=== PATIENT | female | born 1935 | race African-American/Black ===

== ENCOUNTER 2020-06-05 13:34 | Emergency (ER) | payer MEDICARE, BC ==
[~2020-06-05] VITALS: Ht 154.9 cm; Wt 63.0 kg
[2020-06-05] MEDS ORDERED: IBUPROFEN 600MG TABLET PO ONE (14:30)
[2020-06-05] MEDS ORDERED: PROPOFOL 200MG/20ML VIAL IV ONE (15:15)
[2020-06-05] MEDS ORDERED: FENTANYL CITRATE/PF 50MCG/ML 2ML VIAL IV ONE (15:15)
[2020-06-05] MEDS ORDERED: KETAMINE HCL 50 MG/ML 10ML IV ONE (15:15)
[2020-06-05] MEDS ORDERED: SODIUM CHLORIDE 0.9% 1,000 ML IV ONE (15:15)
[2020-06-05] MEDS ORDERED: ONDANSETRON HCL 4MG/2ML INJ IV ONE (16:45)
[2020-06-05] MEDS ORDERED: ONDANSETRON 4MG ODT PO ONE (17:30)
[2020-06-05 17:51] VITALS: BP 160/64
== END 2020-06-05 18:13 | disposition home or self-care (01) ==
LOC: ER 14:16
DX: S52.591A Other fractures of lower end of right radius, initial encounter for closed fracture (principal); S52.611A Displaced fracture of right ulna styloid process, initial encounter for closed fracture; W01.0XXA Fall on same level from slipping, tripping and stumbling without subsequent striking against object, initial encounter; Y93.89 Activity, other specified; Y92.89 Other specified places as the place of occurrence of the external cause; I10 Essential (primary) hypertension
CPT/HCPCS: 25605; 73100; 73110; 96361; 96374; 96375; 99152; 99285; J2405; J2704; J3010; J3490; J7030; Q0162

== ENCOUNTER 2022-02-11 04:26 | Inpatient (IN) | payer BC, MEDICARE ==
[~2022-02-11] VITALS: Ht 157.5 cm; Wt 70.8 kg
[2022-02-11] MEDS ORDERED: KETOROLAC 30MG/ML VIAL IV STA (05:33)
[2022-02-11] MEDS ORDERED: SODIUM CHLORIDE 0.9% 1,000 ML IV ONE (05:45)
[2022-02-11 05:55] LABS: HEMATOCRIT. 34.5 % (36.0-48.0); HEMOGLOBIN. 11.2 g/dL (12.0-16.0); MEAN CORPUSCULAR HEMOGLOBIN 30.2 pg (28.0-32.0); MEAN CORPUSCULAR VOLUME 92.9 fL (81.0-99.0); MEAN PLATELET VOLUME 9.1 fl (7.4-10.4); PLATELET 178 x1000/uL (130-400); RED BLOOD CELL COUNT 3.72 mill/uL (4.2-5.4); RED CELL DISTRIBUTION WIDTH 14.3 % (11.6-14.6)
[2022-02-11 06:03] LABS: CHLORIDE 109 mEq/L (98-107)
[2022-02-11] MEDS ORDERED: KETOROLAC 30MG/ML VIAL IV NR (06:30)
[2022-02-11 07:08] LABS: PLATELET ESTIMATE NORMAL
[2022-02-11 09:41] LABS: CLARITY URINE CLEAR (CLEAR); COLOR URINE YELLOW (YELLOW); KETONES URINE NEGATIVE (NEGATIVE); LEUKOCYTE ESTERASE URINE NEGATIVE (NEGATIVE); NITRITE URINE NEGATIVE (NEGATIVE); OCCULT BLOOD URINE 1+ (NEGATIVE); PH URINE 6.5 (4.5-8.0); PROTEIN URINE 3+ (NEGATIVE); SPECIFIC GRAVITY URINE 1.017 (1.005-1.030)
[2022-02-11] MEDS ORDERED: IPRATROPIUM/ALBUTEROL 0.5-3(2.5)MG/3ML NEB HHN PRN (13:15)
[2022-02-11] MEDS ORDERED: DIPHENHYDRAMINE 50MG/ML VIAL IV PRN (13:15)
[2022-02-11] MEDS ORDERED: CEFTRIAXONE 1 G PREMIX 50 ML IV ONE (13:30)
[2022-02-11 17:30] VITALS: BP 153/65
[2022-02-11] MEDS ORDERED: ATEN100T PO (18:27)
[2022-02-11] MEDS ORDERED: LIDO1ADH48 TP (18:27)
[2022-02-11] MEDS ORDERED: LOSA50TA41 PO (18:27)
[2022-02-11] MEDS ORDERED: ASPI-1406 PO (18:27)
[2022-02-11] MEDS ORDERED: AMLO5TAB88 PO (18:27)
[2022-02-11 20:00] VITALS: BP 159/78
[2022-02-12] VITALS (7 sets, daily range): BP systolic 140–153; BP diastolic 60–73
[2022-02-12] MEDS: ACETAMINOPHEN 325MG TABLET PO PRN ×3 (04:09→21:52)
[2022-02-12 08:03] LABS: BASOPHILS % 0.3 % (0.0-2.0); HEMATOCRIT. 33.6 % (36.0-48.0); LYMPHOCYTES % 11.1 % (20.0-50.0); MEAN CORPUSCULAR HEMOGLOBIN 30.5 pg (28.0-32.0); MEAN CORPUSCULAR VOLUME 93.2 fL (81.0-99.0); MEAN PLATELET VOLUME 9.6 fl (7.4-10.4); MONOCYTES % 12.6 % (2.0-8.0); PLATELET 157 x1000/uL (130-400); RED BLOOD CELL COUNT 3.61 mill/uL (4.2-5.4); RED CELL DISTRIBUTION WIDTH 14.2 % (11.6-14.6)
[2022-02-12 08:27] LABS: CHLORIDE 108 mEq/L (98-107)
[2022-02-12] MEDS: ASPIRIN 81MG EC TABLET PO SCH (09:14)
[2022-02-12] MEDS: AMLODIPINE 5MG TABLET PO SCH (09:15)
[2022-02-12] MEDS: ATENOLOL 50 MG TABLET PO SCH (09:16)
[2022-02-12] MEDS: LOSARTAN POTASSIUM 50 MG TABLET PO SCH (09:16)
[2022-02-12] MEDS ORDERED: CEFTRIAXONE 1,000 MG in DEXTROSE 5% WATER 50 ML IV SCH (15:00)
[2022-02-12] MEDS: CEFTRIAXONE 1,000 MG in DEXTROSE 5% WATER 50 ML IV SCH (16:16)
[2022-02-13] VITALS: BP 143/64
[2022-02-13 04:00] VITALS: BP 157/66
[2022-02-13 06:41] LABS: BASOPHILS % 0.3 % (0.0-2.0); EOSINOPHILS % 0.3 % (0.0-5.0); HEMATOCRIT. 34.4 % (36.0-48.0); HEMOGLOBIN. 11.4 g/dL (12.0-16.0); LYMPHOCYTES % 11.5 % (20.0-50.0); MEAN CORPUSCULAR HEMOGLOBIN 30.4 pg (28.0-32.0); MEAN CORPUSCULAR VOLUME 92.1 fL (81.0-99.0); MEAN PLATELET VOLUME 9.3 fl (7.4-10.4); MONOCYTES % 11.9 % (2.0-8.0); PLATELET 177 x1000/uL (130-400); RED BLOOD CELL COUNT 3.74 mill/uL (4.2-5.4); RED CELL DISTRIBUTION WIDTH 14.3 % (11.6-14.6)
[2022-02-13 07:18] LABS: CHLORIDE 105 mEq/L (98-107)
[2022-02-13 08:26] VITALS: BP 163/68
[2022-02-13] MEDS: LOSARTAN POTASSIUM 50 MG TABLET PO SCH (08:53)
[2022-02-13] MEDS: ASPIRIN 81MG EC TABLET PO SCH (08:53)
[2022-02-13] MEDS: ATENOLOL 50 MG TABLET PO SCH (08:54)
[2022-02-13] MEDS: AMLODIPINE 5MG TABLET PO SCH (08:55)
[2022-02-13] MEDS: ACETAMINOPHEN 325MG TABLET PO PRN ×2 (09:00→20:12)
[2022-02-13 12:18] VITALS: BP 135/62
[2022-02-13 16:00] VITALS: BP 134/59
[2022-02-13] MEDS: CEFTRIAXONE 1,000 MG in DEXTROSE 5% WATER 50 ML IV SCH (16:57)
[2022-02-13] MEDS: POLYETHYLENE GLYCOL 3350 (17GM) 1 DOSE PACK PO SCH (16:57)
[2022-02-13 20:00] VITALS: BP 159/66
[2022-02-14] VITALS: BP 152/69
[2022-02-14 04:00] VITALS: BP 152/56
[2022-02-14 06:32] LABS: BASOPHILS % 0.3 % (0.0-2.0); EOSINOPHILS % 0.4 % (0.0-5.0); HEMATOCRIT. 33.4 % (36.0-48.0); HEMOGLOBIN. 11.2 g/dL (12.0-16.0); LYMPHOCYTES % 14.4 % (20.0-50.0); MEAN CORPUSCULAR HEMOGLOBIN 30.7 pg (28.0-32.0); MEAN CORPUSCULAR VOLUME 91.7 fL (81.0-99.0); MEAN PLATELET VOLUME 9.6 fl (7.4-10.4); MONOCYTES % 12.4 % (2.0-8.0); NEUTROPHILS % 72.5 % (40.0-76.0); PLATELET 186 x1000/uL (130-400); RED BLOOD CELL COUNT 3.64 mill/uL (4.2-5.4); RED CELL DISTRIBUTION WIDTH 14.3 % (11.6-14.6)
[2022-02-14 06:54] LABS: CHLORIDE 103 mEq/L (98-107)
[2022-02-14 08:00] VITALS: BP 140/61
[2022-02-14] MEDS: POLYETHYLENE GLYCOL 3350 (17GM) 1 DOSE PACK PO SCH (09:52)
[2022-02-14] MEDS: ASPIRIN 81MG EC TABLET PO SCH (09:52)
[2022-02-14] MEDS: LOSARTAN POTASSIUM 50 MG TABLET PO SCH (09:52)
[2022-02-14] MEDS: AMLODIPINE 5MG TABLET PO SCH (09:52)
[2022-02-14] MEDS: ATENOLOL 50 MG TABLET PO SCH (09:53)
[2022-02-14] MEDS: ACETAMINOPHEN 325MG TABLET PO PRN ×2 (10:12→20:41)
[2022-02-14 12:00] VITALS: BP_SYST 124; BP_SYST 95; BP_DIAS 52
[2022-02-14 16:00] VITALS: BP 141/54
[2022-02-14 16:27] LABS: INR 1.1; PROTHROMBIN TIME 11.4 sec (9.6-11.0)
[2022-02-14] MEDS: CEFTRIAXONE 1,000 MG in DEXTROSE 5% WATER 50 ML IV SCH (16:44)
[2022-02-14 20:00] VITALS: BP 158/60
[2022-02-15] VITALS: BP 122/57
[2022-02-15] MEDS: ONDANSETRON HCL 4MG/2ML INJ IV PRN (03:47)
[2022-02-15] MEDS: ACETAMINOPHEN 325MG TABLET PO PRN ×2 (03:47→15:02)
[2022-02-15 04:00] VITALS: BP 132/72
[2022-02-15 08:00] VITALS: BP 149/68
[2022-02-15] MEDS: ATENOLOL 50 MG TABLET PO SCH (08:51)
[2022-02-15] MEDS: LOSARTAN POTASSIUM 50 MG TABLET PO SCH (08:51)
[2022-02-15] MEDS: AMLODIPINE 5MG TABLET PO SCH (08:51)
[2022-02-15] MEDS: POLYETHYLENE GLYCOL 3350 (17GM) 1 DOSE PACK PO SCH (08:53)
[2022-02-15 12:00] VITALS: BP 139/60
[2022-02-15] MEDS ORDERED: HYDROCODONE/ACETAMINOPHEN 5/325MG TABLET PO PRN (14:30)
[2022-02-15] MEDS ORDERED: NALOXONE HCL 0.4MG/ML VIAL IV PRN (14:45)
[2022-02-15 16:00] VITALS: BP 140/72
[2022-02-15] MEDS: CEFTRIAXONE 1,000 MG in DEXTROSE 5% WATER 50 ML IV SCH (18:01)
[2022-02-15 20:00] VITALS: BP 122/50
[2022-02-16] VITALS: BP 142/62
[2022-02-16 04:00] VITALS: BP 135/53
[2022-02-16 06:52] LABS: BASOPHILS % 0.3 % (0.0-2.0); EOSINOPHILS % 0.7 % (0.0-5.0); HEMATOCRIT. 30.3 % (36.0-48.0); HEMOGLOBIN. 10.2 g/dL (12.0-16.0); LYMPHOCYTES % 14.8 % (20.0-50.0); MEAN CORPUSCULAR HEMOGLOBIN 30.5 pg (28.0-32.0); MEAN CORPUSCULAR VOLUME 91.1 fL (81.0-99.0); MEAN PLATELET VOLUME 9.2 fl (7.4-10.4); MONOCYTES % 12.6 % (2.0-8.0); NEUTROPHILS % 71.6 % (40.0-76.0); PLATELET 228 x1000/uL (130-400); RED BLOOD CELL COUNT 3.33 mill/uL (4.2-5.4); RED CELL DISTRIBUTION WIDTH 14.2 % (11.6-14.6)
[2022-02-16 07:13] LABS: CHLORIDE 103 mEq/L (98-107)
[2022-02-16 08:00] VITALS: BP 130/57
[2022-02-16] MEDS: ACETAMINOPHEN 325MG TABLET PO PRN ×3 (08:49→23:26)
[2022-02-16] MEDS: LOSARTAN POTASSIUM 50 MG TABLET PO SCH (08:49)
[2022-02-16] MEDS: DEXAMETHASONE 4MG/ML 1ML VIAL IV SCH ×4 (08:49→23:34)
[2022-02-16] MEDS: ATENOLOL 50 MG TABLET PO SCH (08:49)
[2022-02-16] MEDS: POLYETHYLENE GLYCOL 3350 (17GM) 1 DOSE PACK PO SCH (08:51)
[2022-02-16] MEDS: AMLODIPINE 5MG TABLET PO SCH (08:51)
[2022-02-16 12:00] VITALS: BP 132/62
[2022-02-16 16:01] VITALS: BP 131/56
[2022-02-16] MEDS: CEFTRIAXONE 1,000 MG in DEXTROSE 5% WATER 50 ML IV SCH (16:30)
[2022-02-16 20:00] VITALS: BP 144/69
[2022-02-17] VITALS (36 sets, daily range): BP systolic 83–161; BP diastolic 34–82
[2022-02-17] MEDS: DEXAMETHASONE 4MG/ML 1ML VIAL IV SCH ×3 (06:00→23:55)
[2022-02-17 07:46] LABS: BG BASE EXCESS 1.2 mmol/L (-2.0-2.0); BG CARBOXYHEMOGLOBIN 0.1 % (0.5-1.5); BG HCO3 ACT 24.4 mmol/L (22.0-26.0); BG METHEMOGLOBIN 0.1 % (0.0-1.5); BG OXYHEMOGLOBIN 95.8 % (94.0-97.0); BG PCO2 33.7 mmHg (35.0-45.0); BG PH 7.477 (7.350-7.450); BG PO2 83.3 mmHg (75.0-100.0); BG SAMPLE SITE LEFT RADIAL; BG TOTAL HEMOGLOBIN 12.2 g/dL (12.0-18.0); BG VENT MODE ROOM AIR
[2022-02-17 08:35] LABS: BASOPHILS % 0.3 % (0.0-2.0); HEMATOCRIT. 32.9 % (36.0-48.0); HEMOGLOBIN. 10.9 g/dL (12.0-16.0); LYMPHOCYTES % 10.2 % (20.0-50.0); MEAN CORPUSCULAR HEMOGLOBIN 30.4 pg (28.0-32.0); MEAN CORPUSCULAR VOLUME 91.9 fL (81.0-99.0); MEAN PLATELET VOLUME 9.2 fl (7.4-10.4); MONOCYTES % 4.9 % (2.0-8.0); NEUTROPHILS % 84.6 % (40.0-76.0); PLATELET 300 x1000/uL (130-400); RED BLOOD CELL COUNT 3.57 mill/uL (4.2-5.4); RED CELL DISTRIBUTION WIDTH 13.9 % (11.6-14.6)
[2022-02-17] MEDS ORDERED: DEXT 5%/0.9% NACL 1,000 ML IV SCH (08:45)
[2022-02-17 08:47] LABS: CHLORIDE 103 mEq/L (98-107)
[2022-02-17] MEDS: POLYETHYLENE GLYCOL 3350 (17GM) 1 DOSE PACK PO SCH (09:00)
[2022-02-17] MEDS: ATENOLOL 50 MG TABLET PO SCH (09:39)
[2022-02-17] MEDS: AMLODIPINE 5MG TABLET PO SCH (09:39)
[2022-02-17] MEDS: LOSARTAN POTASSIUM 50 MG TABLET PO SCH (09:40)
[2022-02-17] MEDS ORDERED: GENTAMICIN SULF 40MG/ML 2ML VIAL ONE (11:32)
[2022-02-17] MEDS ORDERED: THROMBIN (BOVINE) 5000 UNITS/VIAL TOP ONE (11:32)
[2022-02-17] MEDS ORDERED: LIDOCAINE HCL/EPINEPHRINE 1%-EPI 1:100,000 20 ML VIAL ONE (11:32)
[2022-02-17] MEDS ORDERED: ONDANSETRON HCL 4MG/2ML INJ ONE (12:07)
[2022-02-17] MEDS ORDERED: ROCURONIUM BROMIDE 10MG/ML VIAL 5ML IV ONE ×2 (12:07→12:24)
[2022-02-17] MEDS ORDERED: ETOMIDATE 2MG/ML 10ML VIAL IV ONE (12:07)
[2022-02-17] MEDS ORDERED: DEXAMETHASONE 4MG/ML 1ML VIAL ONE (12:07)
[2022-02-17] MEDS ORDERED: SUCCINYLCHOLINE CHLORIDE 200MG/10ML IV ONE (12:07)
[2022-02-17] MEDS ORDERED: GLYCOPYRROLATE 0.2 MG/ML 2ML VIAL ONE ×2 (12:08)
[2022-02-17] MEDS ORDERED: FENTANYL CITRATE/PF 50MCG/ML 2ML VIAL ONE (12:08)
[2022-02-17] MEDS ORDERED: NEOSTIGMINE METHYLSULFATE 1MG/ML 10 ML VIAL ONE (12:08)
[2022-02-17] MEDS ORDERED: MIDAZOLAM HCL 2 MG/2 ML VIAL ONE (12:09)
[2022-02-17] MEDS ORDERED: PROPOFOL 200MG/20ML VIAL IV ONE (12:44)
[2022-02-17] MEDS ORDERED: HYDRALAZINE 20MG/ML VIAL ONE ×4 (14:30)
[2022-02-17] MEDS ORDERED: NICARDIPINE 100 MG in SODIUM CHLORIDE 0.9% 60 ML IV PRN (14:45)
[2022-02-17] MEDS ORDERED: ONDANSETRON HCL 4MG/2ML INJ IV PRN (15:15)
[2022-02-17] MEDS ORDERED: HYDROMORPHONE HCL/PF 2MG/ML CPJ IV PRN (15:15)
[2022-02-17] MEDS ORDERED: LABETALOL 5MG/ML SYR 20 MG/4 ML SYRINGE IV PRN (15:15)
[2022-02-17] MEDS ORDERED: MEPERIDINE HCL/PF 25MG/ML CPJ IV PRN (15:15)
[2022-02-17] MEDS: MORPHINE SULFATE 4 MG/ML CPJ (NOT FOR IM USE) IV PRN ×2 (17:11→22:18)
[2022-02-17] MEDS: DEXT 5%/LACTATED RINGERS 1,000 ML IV SCH (17:52)
[2022-02-17] MEDS: INSULIN LISPRO 100 UNITS/ML SUBCUT SCH (21:00)
[2022-02-17] MEDS ORDERED: DEXTROSE 50% WATER 50ML SYRINGE IV PRN (21:00)
[2022-02-17] MEDS: BLOOD SUGAR DIAGNOSTIC STRIP TEST SCH (21:25)
[2022-02-17] MEDS ORDERED: CEFAZOLIN SODIUM 1000MG/VIAL IV SCH (22:00)
[2022-02-17] MEDS: CEFAZOLIN 1000MG PREMIX 50 ML IV SCH (22:06)
[2022-02-17] MEDS: ONDANSETRON HCL 4MG/2ML INJ IV PRN (23:54)
[2022-02-18] VITALS (60 sets, daily range): BP systolic 98–170; BP diastolic 45–140
[2022-02-18] MEDS: BLOOD SUGAR DIAGNOSTIC STRIP TEST SCH ×4 (05:17→21:16)
[2022-02-18] MEDS: INSULIN LISPRO 100 UNITS/ML SUBCUT SCH ×4 (05:17→21:16)
[2022-02-18] MEDS: DEXAMETHASONE 4MG/ML 1ML VIAL IV SCH ×2 (05:29→12:58)
[2022-02-18] MEDS: DEXT 5%/LACTATED RINGERS 1,000 ML IV SCH ×2 (05:29→21:19)
[2022-02-18] MEDS: CEFAZOLIN 1000MG PREMIX 50 ML IV SCH ×3 (05:30→21:21)
[2022-02-18] MEDS: MORPHINE SULFATE 4 MG/ML CPJ (NOT FOR IM USE) IV PRN (06:16)
[2022-02-18 08:24] LABS: HEMATOCRIT. 29.7 % (36.0-48.0); HEMOGLOBIN. 9.6 g/dL (12.0-16.0); MEAN CORPUSCULAR VOLUME 92.5 fL (81.0-99.0); MEAN PLATELET VOLUME 9.1 fl (7.4-10.4); PLATELET 313 x1000/uL (130-400); RED BLOOD CELL COUNT 3.21 mill/uL (4.2-5.4); RED CELL DISTRIBUTION WIDTH 14.3 % (11.6-14.6)
[2022-02-18] MEDS: AMLODIPINE 5MG TABLET PO SCH (08:37)
[2022-02-18] MEDS: POLYETHYLENE GLYCOL 3350 (17GM) 1 DOSE PACK PO SCH (08:37)
[2022-02-18] MEDS: ATENOLOL 50 MG TABLET PO SCH (08:39)
[2022-02-18 08:50] LABS: CHLORIDE 105 mEq/L (98-107)
[2022-02-18 09:07] LABS: PLATELET ESTIMATE NORMAL
[2022-02-18] MEDS: LOSARTAN POTASSIUM 50 MG TABLET PO SCH (12:58)
[2022-02-18] MEDS: ACETAMINOPHEN 325MG TABLET PO PRN (14:10)
[2022-02-19] VITALS: BP 138/66
[2022-02-19] MEDS: DEXAMETHASONE 4MG/ML 1ML VIAL IV SCH ×4 (00:14→17:24)
[2022-02-19] MEDS: MORPHINE SULFATE 4 MG/ML CPJ (NOT FOR IM USE) IV PRN (00:24)
[2022-02-19 04:00] VITALS: BP 146/62
[2022-02-19] MEDS: BLOOD SUGAR DIAGNOSTIC STRIP TEST SCH ×4 (06:31→21:00)
[2022-02-19] MEDS: CEFAZOLIN 1000MG PREMIX 50 ML IV SCH ×2 (06:42→13:53)
[2022-02-19] MEDS: DEXT 5%/LACTATED RINGERS 1,000 ML IV SCH (06:43)
[2022-02-19] MEDS: INSULIN LISPRO 100 UNITS/ML SUBCUT SCH ×4 (07:50→22:31)
[2022-02-19 08:00] VITALS: BP 170/81
[2022-02-19] MEDS: ATENOLOL 50 MG TABLET PO SCH (09:08)
[2022-02-19] MEDS: AMLODIPINE 5MG TABLET PO SCH (09:09)
[2022-02-19] MEDS: POLYETHYLENE GLYCOL 3350 (17GM) 1 DOSE PACK PO SCH ×2 (09:10→14:16)
[2022-02-19] MEDS: LOSARTAN POTASSIUM 50 MG TABLET PO SCH (09:10)
[2022-02-19] MEDS: DOCUSATE SODIUM 100MG CAPSULE PO SCH ×2 (14:19→18:03)
[2022-02-19 16:00] VITALS: BP 142/65
[2022-02-19] MEDS: ACETAMINOPHEN 325MG TABLET PO PRN (19:39)
[2022-02-19 20:00] VITALS: BP 161/78
[2022-02-19] MEDS: CLONIDINE 0.1MG TABLET PO PRN (22:29)
[2022-02-20] VITALS: BP 146/71
[2022-02-20] MEDS: DEXAMETHASONE 4MG/ML 1ML VIAL IV SCH ×2 (00:09→05:15)
[2022-02-20 04:00] VITALS: BP 181/78
[2022-02-20] MEDS: BLOOD SUGAR DIAGNOSTIC STRIP TEST SCH ×4 (05:14→21:38)
[2022-02-20] MEDS: DEXT 5%/LACTATED RINGERS 1,000 ML IV SCH (05:15)
[2022-02-20] MEDS: CLONIDINE 0.1MG TABLET PO PRN ×2 (05:25→12:46)
[2022-02-20] MEDS: INSULIN LISPRO 100 UNITS/ML SUBCUT SCH ×4 (07:50→21:00)
[2022-02-20 08:00] VITALS: BP 154/90
[2022-02-20] MEDS: LOSARTAN POTASSIUM 50 MG TABLET PO SCH (09:00)
[2022-02-20] MEDS: DOCUSATE SODIUM 100MG CAPSULE PO SCH ×2 (09:00→17:10)
[2022-02-20] MEDS: POLYETHYLENE GLYCOL 3350 (17GM) 1 DOSE PACK PO SCH (09:00)
[2022-02-20] MEDS: AMLODIPINE 10MG TABLET PO SCH (09:00)
[2022-02-20] MEDS: ATENOLOL 50 MG TABLET PO SCH (09:00)
[2022-02-20 12:00] VITALS: BP 172/80
[2022-02-20 16:00] VITALS: BP 143/60
[2022-02-20 20:00] VITALS: BP 123/57
[2022-02-20] MEDS: ACETAMINOPHEN 325MG TABLET PO PRN (23:52)
[2022-02-21 06:18] LABS: CHLORIDE 100 mEq/L (98-107)
[2022-02-21 06:40] LABS: BASOPHILS % 0.1 % (0.0-2.0); HEMATOCRIT. 31.3 % (36.0-48.0); HEMOGLOBIN. 10.4 g/dL (12.0-16.0); LYMPHOCYTES % 12.3 % (20.0-50.0); MEAN CORPUSCULAR HEMOGLOBIN 30.5 pg (28.0-32.0); MEAN PLATELET VOLUME 8.8 fl (7.4-10.4); MONOCYTES % 9.8 % (2.0-8.0); NEUTROPHILS % 77.8 % (40.0-76.0); PLATELET 429 x1000/uL (130-400); RED CELL DISTRIBUTION WIDTH 13.7 % (11.6-14.6)
[2022-02-21] MEDS: INSULIN LISPRO 100 UNITS/ML SUBCUT SCH ×4 (07:30→21:00)
[2022-02-21] MEDS: BLOOD SUGAR DIAGNOSTIC STRIP TEST SCH ×4 (07:30→21:00)
[2022-02-21 08:00] VITALS: BP 145/63
[2022-02-21] MEDS: LOSARTAN POTASSIUM 50 MG TABLET PO SCH (09:34)
[2022-02-21] MEDS: POLYETHYLENE GLYCOL 3350 (17GM) 1 DOSE PACK PO SCH (09:34)
[2022-02-21] MEDS: ATENOLOL 50 MG TABLET PO SCH (09:39)
[2022-02-21] MEDS: DOCUSATE SODIUM 100MG CAPSULE PO SCH ×2 (09:39→17:18)
[2022-02-21] MEDS: AMLODIPINE 10MG TABLET PO SCH (09:39)
[2022-02-21] MEDS: ACETAMINOPHEN 325MG TABLET PO PRN (09:53)
[2022-02-21 12:00] VITALS: BP 139/65
[2022-02-21] MEDS: MORPHINE SULFATE 4 MG/ML CPJ (NOT FOR IM USE) IV PRN (13:40)
[2022-02-21 16:00] VITALS: BP 151/61
[2022-02-21 20:00] VITALS: BP 145/61
[2022-02-22] VITALS: BP 159/72
[2022-02-22] MEDS: MORPHINE SULFATE 4 MG/ML CPJ (NOT FOR IM USE) IV PRN (00:58)
[2022-02-22 04:00] VITALS: BP 148/77
[2022-02-22] MEDS: INSULIN LISPRO 100 UNITS/ML SUBCUT SCH ×4 (07:50→21:00)
[2022-02-22] MEDS: BLOOD SUGAR DIAGNOSTIC STRIP TEST SCH ×4 (07:54→21:11)
[2022-02-22 08:00] VITALS: BP 143/80
[2022-02-22] MEDS: LOSARTAN POTASSIUM 50 MG TABLET PO SCH (08:25)
[2022-02-22] MEDS: ATENOLOL 50 MG TABLET PO SCH (08:25)
[2022-02-22] MEDS: DOCUSATE SODIUM 100MG CAPSULE PO SCH ×2 (08:25→17:00)
[2022-02-22] MEDS: AMLODIPINE 10MG TABLET PO SCH (08:25)
[2022-02-22] MEDS: POLYETHYLENE GLYCOL 3350 (17GM) 1 DOSE PACK PO SCH (08:26)
[2022-02-22 12:00] VITALS: BP 139/63
[2022-02-22 16:00] VITALS: BP 124/59
[2022-02-22 20:00] VITALS: BP 122/52
[2022-02-22] MEDS: ACETAMINOPHEN 325MG TABLET PO PRN (23:31)
[2022-02-23] VITALS: BP 135/56
[2022-02-23 04:00] VITALS: BP 130/60
[2022-02-23] MEDS: BLOOD SUGAR DIAGNOSTIC STRIP TEST SCH ×3 (06:08→12:20)
[2022-02-23] MEDS: INSULIN LISPRO 100 UNITS/ML SUBCUT SCH ×2 (07:50→12:48)
[2022-02-23] MEDS: LOSARTAN POTASSIUM 50 MG TABLET PO SCH (08:56)
[2022-02-23] MEDS: AMLODIPINE 10MG TABLET PO SCH (08:57)
[2022-02-23] MEDS: ATENOLOL 50 MG TABLET PO SCH (08:58)
[2022-02-23] MEDS: DOCUSATE SODIUM 100MG CAPSULE PO SCH ×2 (08:58→18:07)
[2022-02-23] MEDS: ACETAMINOPHEN 325MG TABLET PO PRN ×2 (09:03→18:08)
[2022-02-23] MEDS: POLYETHYLENE GLYCOL 3350 (17GM) 1 DOSE PACK PO SCH (09:03)
[2022-02-23 14:19] VITALS: BP 103/58
[2022-02-23 20:00] VITALS: BP 104/46
== END 2022-02-23 20:40 | DRG 853 ==
LOC: ER 04:26 → 6WST 13:11 → ENRESERV 16:23 → 6EST 02-12 18:01 → MICUNO 02-17 15:50 → 6WST 02-18 18:11 → 6EST 02-20 12:14
PROVIDERS: ADMIT Internal Medicine; ATTEND Internal Medicine
PROC: 0RG6071 Fusion of Thoracic Vertebral Joint with Autologous Tissue Substitute, Posterior Approach, Posterior Column, Open Approach (ICD-10-PCS; principal; 2022-02-17)
PROC: 00NX0ZZ Release Thoracic Spinal Cord, Open Approach (ICD-10-PCS; 2022-02-17)
PROC: 0RB90ZZ Excision of Thoracic Vertebral Disc, Open Approach (ICD-10-PCS; 2022-02-17)
PROC: 4A11X4G Monitoring of Peripheral Nervous Electrical Activity, Intraoperative, External Approach (ICD-10-PCS; 2022-02-17)
DX: A41.9 Sepsis, unspecified organism (principal); G82.50 Quadriplegia, unspecified; M51.04 Intervertebral disc disorders with myelopathy, thoracic region; G95.20 Unspecified cord compression; K56.41 Fecal impaction; M17.0 Bilateral primary osteoarthritis of knee; I10 Essential (primary) hypertension; M48.061 Spinal stenosis, lumbar region without neurogenic claudication; M81.0 Age-related osteoporosis without current pathological fracture; M48.02 Spinal stenosis, cervical region; K57.30 Diverticulosis of large intestine without perforation or abscess without bleeding; D64.9 Anemia, unspecified; M48.04 Spinal stenosis, thoracic region; Z20.822 Contact with and (suspected) exposure to COVID-19; R53.81 Other malaise; Z86.73 Personal history of transient ischemic attack (TIA), and cerebral infarction without residual deficits; Z90.710 Acquired absence of both cervix and uterus; Z88.6 Allergy status to analgesic agent; Z91.018 Allergy to other foods; Z79.82 Long term (current) use of aspirin; Z79.899 Other long term (current) drug therapy
CPT/HCPCS: 36415; 36600; 71045; 72070; 72141; 72146; 72148; 73560; 74176; 76000; 80048; 80053; 81003; 82375; 82805; 82962; 83036; 84145; 85025; 86850; 86900; 87426; 88304; 88311; 93005; 93306; 93970; 95925; 95926; 95928; 95929; 97110; 97162; 97166; 97530; 97535; 99291; C1713; J0330; J0360; J0690; J0696; J1100; J1580; J1815; J1885; J2250; J2270; J2405; J2704; J2710; J3010; J3490; J7030; J7042; J7060; J7121; A4315; C1762

== ENCOUNTER 2022-02-23 20:48 | Inpatient (IN) | payer MEDICARE ==
[~2022-02-23] VITALS: Ht 157.5 cm; Wt 70.8 kg
[~2022-02-23 20:48] MED LIST: AMLO5TAB88 PO; ASPI-1406 PO; ATEN100T PO; LIDO1ADH48 TP; LOSA50TA41 PO
[2022-02-23 21:00] VITALS: BP 118/61
[2022-02-23] MEDS ORDERED: DIPHENHYDRAMINE 50MG/ML VIAL IV PRN (22:30)
[2022-02-23] MEDS ORDERED: IPRATROPIUM/ALBUTEROL 0.5-3(2.5)MG/3ML NEB HHN PRN (22:30)
[2022-02-23] MEDS ORDERED: ONDANSETRON HCL 4MG/2ML INJ IV PRN (22:30)
[2022-02-23] MEDS ORDERED: CLONIDINE 0.1MG TABLET PO PRN (22:30)
[2022-02-24] MEDS: ACETAMINOPHEN 325MG TABLET PO PRN ×3 (00:58→23:31)
[2022-02-24 06:57] LABS: BASOPHILS % 0.2 % (0.0-2.0); EOSINOPHILS % 1.7 % (0.0-5.0); HEMATOCRIT. 27.8 % (36.0-48.0); HEMOGLOBIN. 9.2 g/dL (12.0-16.0); LYMPHOCYTES % 18.7 % (20.0-50.0); MEAN CORPUSCULAR HEMOGLOBIN 30.4 pg (28.0-32.0); MEAN CORPUSCULAR VOLUME 91.9 fL (81.0-99.0); MEAN PLATELET VOLUME 7.9 fl (7.4-10.4); MONOCYTES % 10.7 % (2.0-8.0); NEUTROPHILS % 68.7 % (40.0-76.0); PLATELET 360 x1000/uL (130-400); RED BLOOD CELL COUNT 3.03 mill/uL (4.2-5.4); RED CELL DISTRIBUTION WIDTH 14.2 % (11.6-14.6)
[2022-02-24 07:08] LABS: CHLORIDE 103 mEq/L (98-107)
[2022-02-24 07:54] VITALS: BP 140/69
[2022-02-24] MEDS: POLYETHYLENE GLYCOL 3350 (17GM) 1 DOSE PACK PO SCH ×2 (08:45→09:00)
[2022-02-24] MEDS: DOCUSATE SODIUM 100MG CAPSULE PO SCH ×3 (08:45→17:00)
[2022-02-24] MEDS: LOSARTAN POTASSIUM 50 MG TABLET PO SCH (08:54)
[2022-02-24] MEDS: AMLODIPINE 10MG TABLET PO SCH (08:54)
[2022-02-24] MEDS: ATENOLOL 50 MG TABLET PO SCH (08:54)
[2022-02-24 11:08] LABS: CLARITY URINE CLEAR (CLEAR); COLOR URINE YELLOW (YELLOW); KETONES URINE NEGATIVE (NEGATIVE); LEUKOCYTE ESTERASE URINE NEGATIVE (NEGATIVE); NITRITE URINE NEGATIVE (NEGATIVE); OCCULT BLOOD URINE 1+ (NEGATIVE); PH URINE 6.5 (4.5-8.0); PROTEIN URINE 2+ (NEGATIVE); SPECIFIC GRAVITY URINE 1.017 (1.005-1.030); UROBILINOGEN URINE 0.2 E.U./dL (0.2-1.0)
[2022-02-24 20:23] VITALS: BP 122/54
[2022-02-25] MEDS: ACETAMINOPHEN 325MG TABLET PO PRN ×3 (05:44→21:19)
[2022-02-25 07:42] VITALS: BP 126/55
[2022-02-25 07:43] LABS: BASOPHILS % 0.1 % (0.0-2.0); EOSINOPHILS % 1.9 % (0.0-5.0); HEMATOCRIT. 30.1 % (36.0-48.0); LYMPHOCYTES % 19.4 % (20.0-50.0); MEAN CORPUSCULAR HEMOGLOBIN 30.6 pg (28.0-32.0); MEAN CORPUSCULAR VOLUME 92.1 fL (81.0-99.0); MEAN PLATELET VOLUME 8.5 fl (7.4-10.4); MONOCYTES % 11.1 % (2.0-8.0); NEUTROPHILS % 67.5 % (40.0-76.0); PLATELET 392 x1000/uL (130-400); RED BLOOD CELL COUNT 3.27 mill/uL (4.2-5.4); RED CELL DISTRIBUTION WIDTH 14.5 % (11.6-14.6)
[2022-02-25 07:52] LABS: CHLORIDE 102 mEq/L (98-107)
[2022-02-25 08:10] LABS: FERRITIN 282 ng/mL (10-291)
[2022-02-25 08:11] LABS: TOTAL IRON BINDING CAPACITY 200 ug/dL (250-450)
[2022-02-25] MEDS: ATENOLOL 50 MG TABLET PO SCH (08:22)
[2022-02-25] MEDS: DOCUSATE SODIUM 100MG CAPSULE PO SCH ×2 (08:22→17:47)
[2022-02-25] MEDS: AMLODIPINE 10MG TABLET PO SCH (08:22)
[2022-02-25 08:23] LABS: FOLIC ACID (FOLATE) SERUM >20 ng/mL ng/mL (>5.38); VITAMIN B12 SERUM 1457 pg/mL (211-911)
[2022-02-25] MEDS: POLYETHYLENE GLYCOL 3350 (17GM) 1 DOSE PACK PO SCH (08:23)
[2022-02-25] MEDS: LOSARTAN POTASSIUM 50 MG TABLET PO SCH (08:23)
[2022-02-25] MEDS: FERROUS SULFATE 325MG TABLET PO SCH ×2 (12:15→17:46)
[2022-02-25] MEDS: POLYVINYL ALCOHOL OPHTH DROPS 15ML EACHEYE PRN (15:01)
[2022-02-25 20:00] VITALS: BP 112/52
[2022-02-25] MEDS ORDERED: ENOXAPARIN 80MG/0.8ML SYR SUBCUT SCH ×2 (22:45→23:00)
[2022-02-26 00:30] LABS: INR 1.1; PROTHROMBIN TIME 11.4 sec (9.6-11.0)
[2022-02-26] MEDS: POLYVINYL ALCOHOL OPHTH DROPS 15ML EACHEYE PRN (06:52)
[2022-02-26 08:00] VITALS: BP 129/58
[2022-02-26] MEDS: ATENOLOL 50 MG TABLET PO SCH (09:41)
[2022-02-26] MEDS: DOCUSATE SODIUM 100MG CAPSULE PO SCH ×2 (09:41→16:47)
[2022-02-26] MEDS: LOSARTAN POTASSIUM 50 MG TABLET PO SCH (09:41)
[2022-02-26] MEDS: ASCORBIC ACID 500 MG TABLET PO SCH (09:41)
[2022-02-26] MEDS: AMLODIPINE 10MG TABLET PO SCH (09:41)
[2022-02-26] MEDS: FERROUS SULFATE 325MG TABLET PO SCH ×3 (09:41→16:47)
[2022-02-26] MEDS: POLYETHYLENE GLYCOL 3350 (17GM) 1 DOSE PACK PO SCH (09:42)
[2022-02-26] MEDS ORDERED: CEFTRIAXONE 1 G PREMIX 50 ML IV SCH (10:45)
[2022-02-26] MEDS: ACETAMINOPHEN 325MG TABLET PO PRN ×2 (12:19→21:39)
[2022-02-26] MEDS: CEFTRIAXONE 1,000 MG in DEXTROSE 5% WATER 50 ML IV SCH (18:11)
[2022-02-26 20:00] VITALS: BP 112/67
[2022-02-27] VITALS (9 sets, daily range): BP systolic 115–155; BP diastolic 51–77
[2022-02-27] MEDS ORDERED: LIDOCAINE HCL 1% 10 MG/ML 10ML VIAL ONE (07:31)
[2022-02-27] MEDS ORDERED: IOHEXOL-300 100 ML BOTTLE ONE (07:31)
[2022-02-27] MEDS: DOCUSATE SODIUM 100MG CAPSULE PO SCH ×2 (09:49→17:00)
[2022-02-27] MEDS: LOSARTAN POTASSIUM 50 MG TABLET PO SCH (09:49)
[2022-02-27] MEDS: FERROUS SULFATE 325MG TABLET PO SCH ×3 (09:49→18:08)
[2022-02-27] MEDS: ASCORBIC ACID 500 MG TABLET PO SCH (09:49)
[2022-02-27] MEDS: AMLODIPINE 10MG TABLET PO SCH (09:50)
[2022-02-27] MEDS: POLYETHYLENE GLYCOL 3350 (17GM) 1 DOSE PACK PO SCH (09:51)
[2022-02-27] MEDS: ATENOLOL 50 MG TABLET PO SCH (09:51)
[2022-02-27] MEDS: CEFTRIAXONE 1,000 MG in DEXTROSE 5% WATER 50 ML IV SCH (12:49)
[2022-02-27] MEDS: ACETAMINOPHEN 325MG TABLET PO PRN ×2 (14:34→22:35)
[2022-02-27] MEDS: AMOXICILLIN 500 MG CAPSULE PO SCH (22:35)
[2022-02-28] MEDS: AMOXICILLIN 500 MG CAPSULE PO SCH ×3 (06:14→21:27)
[2022-02-28 08:00] VITALS: BP 170/68
[2022-02-28] MEDS: FERROUS SULFATE 325MG TABLET PO SCH ×3 (08:56→17:00)
[2022-02-28] MEDS: ACETAMINOPHEN 325MG TABLET PO PRN (08:56)
[2022-02-28] MEDS: AMLODIPINE 10MG TABLET PO SCH (08:57)
[2022-02-28] MEDS: DOCUSATE SODIUM 100MG CAPSULE PO SCH ×2 (08:57→17:00)
[2022-02-28] MEDS: POLYETHYLENE GLYCOL 3350 (17GM) 1 DOSE PACK PO SCH ×2 (08:57→09:00)
[2022-02-28] MEDS: ATENOLOL 50 MG TABLET PO SCH (08:58)
[2022-02-28] MEDS: ASCORBIC ACID 500 MG TABLET PO SCH (08:58)
[2022-02-28] MEDS: LOSARTAN POTASSIUM 50 MG TABLET PO SCH (08:58)
[2022-02-28 20:00] VITALS: BP 115/65
[2022-03-01] MEDS: POLYVINYL ALCOHOL OPHTH DROPS 15ML EACHEYE PRN (04:58)
[2022-03-01] MEDS: AMOXICILLIN 500 MG CAPSULE PO SCH ×3 (06:11→21:06)
[2022-03-01 08:00] VITALS: BP 112/48
[2022-03-01] MEDS: POLYETHYLENE GLYCOL 3350 (17GM) 1 DOSE PACK PO SCH (09:21)
[2022-03-01] MEDS: FERROUS SULFATE 325MG TABLET PO SCH ×3 (09:21→17:13)
[2022-03-01] MEDS: ASCORBIC ACID 500 MG TABLET PO SCH (09:21)
[2022-03-01] MEDS: DOCUSATE SODIUM 100MG CAPSULE PO SCH ×2 (09:21→17:00)
[2022-03-01] MEDS: LOSARTAN POTASSIUM 50 MG TABLET PO SCH (09:22)
[2022-03-01] MEDS: ATENOLOL 50 MG TABLET PO SCH (09:23)
[2022-03-01] MEDS: AMLODIPINE 10MG TABLET PO SCH (09:23)
[2022-03-01] MEDS: ACETAMINOPHEN 325MG TABLET PO PRN ×2 (14:04→21:54)
[2022-03-01 20:00] VITALS: BP 111/61
[2022-03-02] MEDS: AMOXICILLIN 500 MG CAPSULE PO SCH ×3 (06:44→21:10)
[2022-03-02 08:00] VITALS: BP 117/84
[2022-03-02] MEDS: POLYETHYLENE GLYCOL 3350 (17GM) 1 DOSE PACK PO SCH (09:00)
[2022-03-02] MEDS: ATENOLOL 50 MG TABLET PO SCH (09:11)
[2022-03-02] MEDS: AMLODIPINE 10MG TABLET PO SCH (09:11)
[2022-03-02] MEDS: LOSARTAN POTASSIUM 50 MG TABLET PO SCH (09:11)
[2022-03-02] MEDS: ASCORBIC ACID 500 MG TABLET PO SCH (09:11)
[2022-03-02] MEDS: FERROUS SULFATE 325MG TABLET PO SCH ×2 (09:11→17:15)
[2022-03-02] MEDS: DOCUSATE SODIUM 100MG CAPSULE PO SCH ×2 (09:11→17:15)
[2022-03-02] MEDS: ACETAMINOPHEN 325MG TABLET PO PRN ×2 (12:43→21:10)
[2022-03-02 20:00] VITALS: BP 122/66
[2022-03-03] MEDS: AMOXICILLIN 500 MG CAPSULE PO SCH ×3 (06:22→21:33)
[2022-03-03] MEDS: ASCORBIC ACID 500 MG TABLET PO SCH (08:13)
[2022-03-03] MEDS: FERROUS SULFATE 325MG TABLET PO SCH ×3 (08:14→16:59)
[2022-03-03] MEDS: DOCUSATE SODIUM 100MG CAPSULE PO SCH ×2 (08:14→16:59)
[2022-03-03] MEDS: LOSARTAN POTASSIUM 50 MG TABLET PO SCH (08:14)
[2022-03-03] MEDS: AMLODIPINE 10MG TABLET PO SCH (08:14)
[2022-03-03] MEDS: POLYETHYLENE GLYCOL 3350 (17GM) 1 DOSE PACK PO SCH (08:15)
[2022-03-03] MEDS: ATENOLOL 50 MG TABLET PO SCH (08:15)
[2022-03-03 08:50] VITALS: BP 124/55
[2022-03-03] MEDS: ACETAMINOPHEN 325MG TABLET PO PRN ×2 (11:19→23:56)
[2022-03-03] MEDS: POLYVINYL ALCOHOL OPHTH DROPS 15ML EACHEYE PRN (11:20)
[2022-03-03 15:09] LABS: 25-HYDROXY VITAMIN D3 47 ng/mL (.)
[2022-03-03 20:00] VITALS: BP 107/49
[2022-03-04] MEDS: AMOXICILLIN 500 MG CAPSULE PO SCH ×3 (06:27→21:34)
[2022-03-04 08:00] VITALS: BP 106/55
[2022-03-04] MEDS: AMLODIPINE 10MG TABLET PO SCH ×2 (08:22→10:46)
[2022-03-04] MEDS: ASCORBIC ACID 500 MG TABLET PO SCH (08:39)
[2022-03-04] MEDS: DOCUSATE SODIUM 100MG CAPSULE PO SCH ×2 (08:39→17:00)
[2022-03-04] MEDS: FERROUS SULFATE 325MG TABLET PO SCH ×3 (08:39→17:13)
[2022-03-04] MEDS: POLYETHYLENE GLYCOL 3350 (17GM) 1 DOSE PACK PO SCH (08:40)
[2022-03-04] MEDS: LOSARTAN POTASSIUM 50 MG TABLET PO SCH ×2 (08:40→10:45)
[2022-03-04] MEDS: ATENOLOL 50 MG TABLET PO SCH (08:41)
[2022-03-04 09:54] LABS: BASOPHILS % 0.9 % (0.0-2.0); EOSINOPHILS % 3.3 % (0.0-5.0); HEMATOCRIT. 29.8 % (36.0-48.0); HEMOGLOBIN. 9.6 g/dL (12.0-16.0); LYMPHOCYTES % 18.4 % (20.0-50.0); MEAN CORPUSCULAR VOLUME 92.6 fL (81.0-99.0); MEAN PLATELET VOLUME 8.1 fl (7.4-10.4); MONOCYTES % 9.1 % (2.0-8.0); NEUTROPHILS % 68.3 % (40.0-76.0); PLATELET 273 x1000/uL (130-400); RED BLOOD CELL COUNT 3.22 mill/uL (4.2-5.4); RED CELL DISTRIBUTION WIDTH 14.8 % (11.6-14.6)
[2022-03-04 10:03] LABS: CHLORIDE 105 mEq/L (98-107)
[2022-03-04 10:30] VITALS: BP 122/61
[2022-03-04] MEDS: ERGOCALCIFEROL 50000UNITS CAPSULE PO SCH (10:48)
[2022-03-04] MEDS: POLYVINYL ALCOHOL OPHTH DROPS 15ML EACHEYE PRN (12:24)
[2022-03-04 20:00] VITALS: BP 107/52
[2022-03-04] MEDS: ACETAMINOPHEN 325MG TABLET PO PRN (21:34)
[2022-03-05 06:26] LABS: BASOPHILS % 0.8 % (0.0-2.0); EOSINOPHILS % 4.6 % (0.0-5.0); HEMATOCRIT. 28.4 % (36.0-48.0); HEMOGLOBIN. 9.4 g/dL (12.0-16.0); LYMPHOCYTES % 27.3 % (20.0-50.0); MEAN CORPUSCULAR HEMOGLOBIN 30.4 pg (28.0-32.0); MEAN CORPUSCULAR VOLUME 91.8 fL (81.0-99.0); MEAN PLATELET VOLUME 8.1 fl (7.4-10.4); MONOCYTES % 10.2 % (2.0-8.0); NEUTROPHILS % 57.1 % (40.0-76.0); PLATELET 251 x1000/uL (130-400); RED BLOOD CELL COUNT 3.09 mill/uL (4.2-5.4); RED CELL DISTRIBUTION WIDTH 14.2 % (11.6-14.6)
[2022-03-05 07:15] LABS: CHLORIDE 107 mEq/L (98-107)
[2022-03-05 08:00] VITALS: BP 126/67
[2022-03-05] MEDS: ASCORBIC ACID 500 MG TABLET PO SCH (08:55)
[2022-03-05] MEDS: ATENOLOL 50 MG TABLET PO SCH (08:55)
[2022-03-05] MEDS: DOCUSATE SODIUM 100MG CAPSULE PO SCH ×2 (08:55→16:38)
[2022-03-05] MEDS: FERROUS SULFATE 325MG TABLET PO SCH ×3 (08:55→16:38)
[2022-03-05] MEDS: LOSARTAN POTASSIUM 50 MG TABLET PO SCH (08:55)
[2022-03-05] MEDS: AMLODIPINE 10MG TABLET PO SCH (08:56)
[2022-03-05] MEDS: POLYETHYLENE GLYCOL 3350 (17GM) 1 DOSE PACK PO SCH (08:56)
[2022-03-05 20:00] VITALS: BP 116/44
[2022-03-05] MEDS: ACETAMINOPHEN 325MG TABLET PO PRN (22:37)
[2022-03-06 07:55] VITALS: BP 125/53
[2022-03-06] MEDS: DOCUSATE SODIUM 100MG CAPSULE PO SCH ×2 (08:51→17:00)
[2022-03-06] MEDS: FERROUS SULFATE 325MG TABLET PO SCH ×3 (08:52→17:00)
[2022-03-06] MEDS: AMLODIPINE 10MG TABLET PO SCH (08:52)
[2022-03-06] MEDS: ASCORBIC ACID 500 MG TABLET PO SCH (08:52)
[2022-03-06] MEDS: LOSARTAN POTASSIUM 50 MG TABLET PO SCH (08:52)
[2022-03-06] MEDS: POLYETHYLENE GLYCOL 3350 (17GM) 1 DOSE PACK PO SCH (08:56)
[2022-03-06] MEDS: ATENOLOL 50 MG TABLET PO SCH (08:56)
[2022-03-06] MEDS: ACETAMINOPHEN 325MG TABLET PO PRN (10:17)
[2022-03-06 20:00] VITALS: BP 123/48
[2022-03-07] MEDS: ACETAMINOPHEN 325MG TABLET PO PRN ×2 (01:15→21:24)
[2022-03-07 08:00] VITALS: BP 125/47
[2022-03-07] MEDS: POLYETHYLENE GLYCOL 3350 (17GM) 1 DOSE PACK PO SCH (09:00)
[2022-03-07] MEDS: ASCORBIC ACID 500 MG TABLET PO SCH (09:07)
[2022-03-07] MEDS: FERROUS SULFATE 325MG TABLET PO SCH ×3 (09:07→17:10)
[2022-03-07] MEDS: ATENOLOL 50 MG TABLET PO SCH (09:07)
[2022-03-07] MEDS: AMLODIPINE 10MG TABLET PO SCH (09:07)
[2022-03-07] MEDS: LOSARTAN POTASSIUM 50 MG TABLET PO SCH (09:07)
[2022-03-07] MEDS: DOCUSATE SODIUM 100MG CAPSULE PO SCH ×2 (09:07→17:10)
[2022-03-07 20:00] VITALS: BP 117/48
[2022-03-08 08:00] VITALS: BP 132/68
[2022-03-08] MEDS: POLYETHYLENE GLYCOL 3350 (17GM) 1 DOSE PACK PO SCH (09:00)
[2022-03-08] MEDS: FERROUS SULFATE 325MG TABLET PO SCH ×3 (09:33→17:59)
[2022-03-08] MEDS: ASCORBIC ACID 500 MG TABLET PO SCH (09:33)
[2022-03-08] MEDS: DOCUSATE SODIUM 100MG CAPSULE PO SCH ×2 (09:33→17:59)
[2022-03-08] MEDS: AMLODIPINE 10MG TABLET PO SCH (09:33)
[2022-03-08] MEDS: ATENOLOL 50 MG TABLET PO SCH (09:34)
[2022-03-08] MEDS: LOSARTAN POTASSIUM 50 MG TABLET PO SCH (09:34)
[2022-03-08 20:00] VITALS: BP 129/56
[2022-03-08 21:00] VITALS: BP 129/56
[2022-03-08] MEDS: ACETAMINOPHEN 325MG TABLET PO PRN (22:46)
[2022-03-09] MEDS: POLYVINYL ALCOHOL OPHTH DROPS 15ML EACHEYE PRN (01:48)
[2022-03-09 08:00] VITALS: BP 120/56
[2022-03-09] MEDS: POLYETHYLENE GLYCOL 3350 (17GM) 1 DOSE PACK PO SCH (09:00)
[2022-03-09] MEDS: DOCUSATE SODIUM 100MG CAPSULE PO SCH ×2 (09:54→16:58)
[2022-03-09] MEDS: ATENOLOL 50 MG TABLET PO SCH (09:54)
[2022-03-09] MEDS: ASCORBIC ACID 500 MG TABLET PO SCH (09:55)
[2022-03-09] MEDS: AMLODIPINE 10MG TABLET PO SCH (09:55)
[2022-03-09] MEDS: FERROUS SULFATE 325MG TABLET PO SCH ×3 (09:55→16:58)
[2022-03-09] MEDS: LOSARTAN POTASSIUM 50 MG TABLET PO SCH (09:55)
[2022-03-09] MEDS: ACETAMINOPHEN 325MG TABLET PO PRN (17:01)
[2022-03-09 20:48] VITALS: BP 108/47
[2022-03-10 07:52] VITALS: BP 120/61
[2022-03-10] MEDS: ASCORBIC ACID 500 MG TABLET PO SCH (09:06)
[2022-03-10] MEDS: FERROUS SULFATE 325MG TABLET PO SCH ×3 (09:06→17:26)
[2022-03-10] MEDS: DOCUSATE SODIUM 100MG CAPSULE PO SCH ×2 (09:06→17:26)
[2022-03-10] MEDS: LOSARTAN POTASSIUM 50 MG TABLET PO SCH (09:07)
[2022-03-10] MEDS: AMLODIPINE 10MG TABLET PO SCH (09:07)
[2022-03-10] MEDS: POLYETHYLENE GLYCOL 3350 (17GM) 1 DOSE PACK PO SCH (09:08)
[2022-03-10] MEDS: ATENOLOL 50 MG TABLET PO SCH (09:08)
[2022-03-10 20:00] VITALS: BP 113/48
[2022-03-10] MEDS: ACETAMINOPHEN 325MG TABLET PO PRN (22:39)
[2022-03-11 08:00] VITALS: BP 127/54
[2022-03-11] MEDS: POLYETHYLENE GLYCOL 3350 (17GM) 1 DOSE PACK PO SCH (09:00)
[2022-03-11] MEDS: FERROUS SULFATE 325MG TABLET PO SCH ×3 (10:15→16:55)
[2022-03-11] MEDS: DOCUSATE SODIUM 100MG CAPSULE PO SCH ×2 (10:15→16:55)
[2022-03-11] MEDS: LOSARTAN POTASSIUM 50 MG TABLET PO SCH (10:15)
[2022-03-11] MEDS: ERGOCALCIFEROL 50000UNITS CAPSULE PO SCH (10:20)
[2022-03-11] MEDS: AMLODIPINE 10MG TABLET PO SCH (10:20)
[2022-03-11] MEDS: ATENOLOL 50 MG TABLET PO SCH (10:20)
[2022-03-11] MEDS: ASCORBIC ACID 500 MG TABLET PO SCH (10:20)
[2022-03-11] MEDS: POLYVINYL ALCOHOL OPHTH DROPS 15ML EACHEYE PRN ×2 (10:25→13:17)
[2022-03-11 20:00] VITALS: BP 117/49
[2022-03-11] MEDS: ACETAMINOPHEN 325MG TABLET PO PRN (21:23)
[2022-03-12 08:00] VITALS: BP 120/47
[2022-03-12] MEDS: DOCUSATE SODIUM 100MG CAPSULE PO SCH ×2 (08:48→17:49)
[2022-03-12] MEDS: ASCORBIC ACID 500 MG TABLET PO SCH (08:48)
[2022-03-12] MEDS: AMLODIPINE 10MG TABLET PO SCH (08:48)
[2022-03-12] MEDS: FERROUS SULFATE 325MG TABLET PO SCH ×3 (08:48→17:48)
[2022-03-12] MEDS: LOSARTAN POTASSIUM 50 MG TABLET PO SCH (08:48)
[2022-03-12] MEDS: POLYETHYLENE GLYCOL 3350 (17GM) 1 DOSE PACK PO SCH (08:49)
[2022-03-12] MEDS: ATENOLOL 50 MG TABLET PO SCH (08:49)
[2022-03-12] MEDS: POLYVINYL ALCOHOL OPHTH DROPS 15ML EACHEYE PRN ×2 (08:49→17:50)
[2022-03-12 20:00] VITALS: BP 116/50
[2022-03-13] MEDS: ACETAMINOPHEN 325MG TABLET PO PRN (03:26)
[2022-03-13 08:00] VITALS: BP 146/65
[2022-03-13] MEDS: POLYETHYLENE GLYCOL 3350 (17GM) 1 DOSE PACK PO SCH (09:00)
[2022-03-13] MEDS: AMLODIPINE 10MG TABLET PO SCH (09:00)
[2022-03-13] MEDS: ASCORBIC ACID 500 MG TABLET PO SCH (09:00)
[2022-03-13] MEDS: FERROUS SULFATE 325MG TABLET PO SCH ×3 (09:00→17:18)
[2022-03-13] MEDS: DOCUSATE SODIUM 100MG CAPSULE PO SCH ×2 (09:00→17:18)
[2022-03-13] MEDS: LOSARTAN POTASSIUM 50 MG TABLET PO SCH (09:00)
[2022-03-13] MEDS: ATENOLOL 50 MG TABLET PO SCH (09:00)
[2022-03-13 09:10] LABS: BASOPHILS % 0.8 % (0.0-2.0); EOSINOPHILS % 5.2 % (0.0-5.0); HEMATOCRIT. 30.8 % (36.0-48.0); HEMOGLOBIN. 9.8 g/dL (12.0-16.0); LYMPHOCYTES % 28.3 % (20.0-50.0); MEAN CORPUSCULAR HEMOGLOBIN 30.2 pg (28.0-32.0); MEAN CORPUSCULAR VOLUME 94.6 fL (81.0-99.0); MEAN PLATELET VOLUME 8.7 fl (7.4-10.4); MONOCYTES % 11.3 % (2.0-8.0); NEUTROPHILS % 54.4 % (40.0-76.0); PLATELET 384 x1000/uL (130-400); RED BLOOD CELL COUNT 3.26 mill/uL (4.2-5.4); RED CELL DISTRIBUTION WIDTH 15.5 % (11.6-14.6)
[2022-03-13 09:14] LABS: CHLORIDE 107 mEq/L (98-107)
[2022-03-13 20:00] VITALS: BP 107/50
[2022-03-14] MEDS: ACETAMINOPHEN 325MG TABLET PO PRN ×2 (06:45→07:50)
[2022-03-14 08:00] VITALS: BP 115/61
[2022-03-14] MEDS: POLYETHYLENE GLYCOL 3350 (17GM) 1 DOSE PACK PO SCH (09:00)
[2022-03-14] MEDS: FERROUS SULFATE 325MG TABLET PO SCH ×3 (10:01→17:00)
[2022-03-14] MEDS: ATENOLOL 50 MG TABLET PO SCH (10:01)
[2022-03-14] MEDS: AMLODIPINE 10MG TABLET PO SCH (10:02)
[2022-03-14] MEDS: DOCUSATE SODIUM 100MG CAPSULE PO SCH ×2 (10:02→17:46)
[2022-03-14] MEDS: ASCORBIC ACID 500 MG TABLET PO SCH (10:02)
[2022-03-14] MEDS: LOSARTAN POTASSIUM 50 MG TABLET PO SCH (10:02)
[2022-03-14] MEDS: POLYVINYL ALCOHOL OPHTH DROPS 15ML EACHEYE PRN (17:47)
[2022-03-14 20:00] VITALS: BP 108/41
[2022-03-15] MEDS: ACETAMINOPHEN 325MG TABLET PO PRN ×2 (02:04→20:00)
[2022-03-15 08:00] VITALS: BP 127/60
[2022-03-15] MEDS: POLYETHYLENE GLYCOL 3350 (17GM) 1 DOSE PACK PO SCH (09:00)
[2022-03-15] MEDS: DOCUSATE SODIUM 100MG CAPSULE PO SCH ×2 (09:06→16:47)
[2022-03-15] MEDS: ASCORBIC ACID 500 MG TABLET PO SCH (09:06)
[2022-03-15] MEDS: AMLODIPINE 10MG TABLET PO SCH (09:07)
[2022-03-15] MEDS: LOSARTAN POTASSIUM 50 MG TABLET PO SCH (09:07)
[2022-03-15] MEDS: FERROUS SULFATE 325MG TABLET PO SCH ×3 (09:07→16:47)
[2022-03-15] MEDS: ATENOLOL 50 MG TABLET PO SCH (09:07)
[2022-03-15 20:00] VITALS: BP 124/56
[2022-03-16 08:00] VITALS: BP 133/64
[2022-03-16] MEDS: POLYETHYLENE GLYCOL 3350 (17GM) 1 DOSE PACK PO SCH (09:00)
[2022-03-16] MEDS: FERROUS SULFATE 325MG TABLET PO SCH ×3 (09:31→16:48)
[2022-03-16] MEDS: ATENOLOL 50 MG TABLET PO SCH (09:31)
[2022-03-16] MEDS: AMLODIPINE 10MG TABLET PO SCH (09:31)
[2022-03-16] MEDS: LOSARTAN POTASSIUM 50 MG TABLET PO SCH (09:31)
[2022-03-16] MEDS: DOCUSATE SODIUM 100MG CAPSULE PO SCH ×2 (09:31→16:48)
[2022-03-16] MEDS: ASCORBIC ACID 500 MG TABLET PO SCH (09:31)
[2022-03-16 20:00] VITALS: BP 117/57
[2022-03-16] MEDS: ACETAMINOPHEN 325MG TABLET PO PRN (22:04)
[2022-03-17 08:00] VITALS: BP 138/51
[2022-03-17] MEDS: POLYETHYLENE GLYCOL 3350 (17GM) 1 DOSE PACK PO SCH (09:00)
[2022-03-17] MEDS ORDERED: ATEN50TA PO (09:39)
[2022-03-17] MEDS ORDERED: LOSA50TA3 PO (09:39)
[2022-03-17] MEDS ORDERED: FERR-63 PO (09:39)
[2022-03-17] MEDS ORDERED: AMLO10TA80 PO (09:39)
[2022-03-17] MEDS: FERROUS SULFATE 325MG TABLET PO SCH (09:52)
[2022-03-17] MEDS: DOCUSATE SODIUM 100MG CAPSULE PO SCH (09:52)
[2022-03-17] MEDS: ASCORBIC ACID 500 MG TABLET PO SCH (09:52)
[2022-03-17] MEDS: LOSARTAN POTASSIUM 50 MG TABLET PO SCH (09:52)
[2022-03-17] MEDS: ATENOLOL 50 MG TABLET PO SCH (09:54)
[2022-03-17] MEDS: AMLODIPINE 10MG TABLET PO SCH (09:54)
[2022-03-17 10:23] VITALS: BP 138/51
== END 2022-03-17 13:40 | disposition home health service (06) | DRG 551 ==
PROVIDERS: ADMIT Physical Medicine & Rehabilitation Spinal Cord Injury Medicine; ATTEND Internal Medicine
PROC: 06H03DZ Insertion of Intraluminal Device into Inferior Vena Cava, Percutaneous Approach (ICD-10-PCS; principal; 2022-02-27)
DX: M48.02 Spinal stenosis, cervical region (principal); A41.9 Sepsis, unspecified organism; G82.50 Quadriplegia, unspecified; N39.0 Urinary tract infection, site not specified; I82.411 Acute embolism and thrombosis of right femoral vein; K59.2 Neurogenic bowel, not elsewhere classified; M48.061 Spinal stenosis, lumbar region without neurogenic claudication; R53.81 Other malaise; I10 Essential (primary) hypertension; M81.0 Age-related osteoporosis without current pathological fracture; B95.2 Enterococcus as the cause of diseases classified elsewhere; D50.9 Iron deficiency anemia, unspecified; E55.9 Vitamin D deficiency, unspecified; F06.34 Mood disorder due to known physiological condition with mixed features; K56.41 Fecal impaction; K57.90 Diverticulosis of intestine, part unspecified, without perforation or abscess without bleeding; N31.9 Neuromuscular dysfunction of bladder, unspecified; M47.814 Spondylosis without myelopathy or radiculopathy, thoracic region; M17.0 Bilateral primary osteoarthritis of knee; M48.04 Spinal stenosis, thoracic region; M51.24 Other intervertebral disc displacement, thoracic region; Z90.710 Acquired absence of both cervix and uterus; Z88.6 Allergy status to analgesic agent; Z91.041 Radiographic dye allergy status; M79.609 Pain in unspecified limb
CPT/HCPCS: 36415; 37191; 80048; 80053; 81003; 82306; 82607; 82728; 82746; 83540; 83550; 84134; 84443; 85025; 87077; 87186; 93970; 97110; 97116; 97150; 97162; 97166; 97530; 97535; C1769; C1880; J0696; J1644; J2405; J3490; J7060; Q9967